=== PATIENT | male | born 1980 | race Hispanic/Latino ===

== ENCOUNTER → 2023-06-06 | Outpatient (CLI) | payer MEDICAID | END | disposition home or self-care (01) | LOC: SHCH 14:22 | PROVIDERS: ATTEND Internal Medicine Cardiovascular Disease | DX: R01.1 Cardiac murmur, unspecified (principal) | CPT/HCPCS: 93306 ==

== ENCOUNTER 2023-12-22 08:32 | Day surgery (SDC) | payer MEDICAID ==
[~2023-12-22] VITALS: Ht 182.9 cm; Wt 108.4 kg
[2023-12-22] VITALS (11 sets, daily range): BP systolic 104–146; BP diastolic 43–79; PULSE 61–71; RESP 15–18
[~2023-12-22 08:32] MED LIST: 0.9%NACL 1000ML 0 ML IV ONE
[2023-12-22] MEDS ORDERED: AMLO-258 PO (11:12)
[2023-12-22] MEDS ORDERED: ESCI-8 PO (11:12)
[2023-12-22] MEDS ORDERED: ISOS60TA77 PO (11:12)
[2023-12-22] MEDS ORDERED: METO-391 PO (11:12)
[2023-12-22] MEDS ORDERED: BUSP15TA3 PO (11:12)
[2023-12-22] MEDS ORDERED: FOLI0.8T22 PO (11:12)
[2023-12-22] MEDS ORDERED: ATOR40TA69 PO (11:12)
[2023-12-22] MEDS: 0.9% NACL 500ML IV.SOLN 500 ML IV ONE (11:15)
[2023-12-22] MEDS ORDERED: PROPOFOL 10 MG/ML 20ML VIAL IV ONE (12:41)
== END 2023-12-22 14:10 | disposition home or self-care (01) ==
LOC: DAH 08:32 → ENDO 08:32
PROVIDERS: ATTEND Internal Medicine Gastroenterology
DX: R93.3 Abnormal findings on diagnostic imaging of other parts of digestive tract (principal); K29.50 Unspecified chronic gastritis without bleeding; K22.81 Esophageal polyp; R10.13 Epigastric pain; R19.7 Diarrhea, unspecified; E78.5 Hyperlipidemia, unspecified; I12.0 Hypertensive chronic kidney disease with stage 5 chronic kidney disease or end stage renal disease; E11.22 Type 2 diabetes mellitus with diabetic chronic kidney disease; N18.6 End stage renal disease; F41.9 Anxiety disorder, unspecified; K59.00 Constipation, unspecified; K76.0 Fatty (change of) liver, not elsewhere classified; K52.3 Indeterminate colitis; K80.20 Calculus of gallbladder without cholecystitis without obstruction; K31.84 Gastroparesis; K21.9 Gastro-esophageal reflux disease without esophagitis; Z86.010 Personal history of colon polyps; Z82.49 Family history of ischemic heart disease and other diseases of the circulatory system; Z83.3 Family history of diabetes mellitus; Z82.3 Family history of stroke; Z79.899 Other long term (current) drug therapy; Z98.890 Other specified postprocedural states
CPT/HCPCS: 43259; 82948 ×2; 43239; J7040; J2704; A4620; A4215 ×2; A4223; A7002; A4222; A4221; A4663; J7030; A4606; J3490